=== PATIENT | male | born 1945 | race Caucasian/White ===

== ENCOUNTER 2023-03-07 09:44 | Inpatient (IN) | payer MEDICARE ==
[2023-03-07] MEDS ORDERED: Vancomycin 1 GM VIAL ONE (10:36)
[2023-03-07] MEDS ORDERED: Bupivacaine HCl 0.5%/Epinephrine 1:200,000/PF 30 ml Vial ONE (10:36)
[2023-03-07] MEDS ORDERED: Thrombin 5000 UNITS/5 ML VIAL ONE (10:36)
[2023-03-07 11:34] LABS: #Basophils 0.1 thou/uL (0.0-0.2); #Eosinphils 0.2 thou/uL (0.0-0.7); %Basophils 0.7 % (0.0-1.0); %Eosinophils 3.1 % (0.0-10.0); %Lymphocytes 22.5 % (21.0-51.0); %Monocytes 14.5 % (0.0-10.0); %Neutrophils 58.8 % (42.0-75.0); Hemoglobin 14.9 g/dL (14.0-18.0); Mean Corpuscular HGB CONC 35.6 g/dL (32.0-36.0); Mean Corpuscular Hemoglobin 34.3 pg (27.0-31.0); Mean Corpuscular Volume 96.3 fl (78.0-98.0); Mean Platelet Volume 10.9 fL (7.4-10.4); Platelet Count 181 10x3/uL (130-400); RBC Distribution Width 13.2 % (11.5-14.5); Red Blood Cell (RBC) Count 4.34 mill/uL (4.70-6.10); White Blood Cell (WBC) Count 6.8 10x3/uL (4.8-10.8)
[2023-03-07 11:39] LABS: PTT 27.2 sec (22.9-36.1); Prothrombin Time 13.6 sec (12.0-14.7)
[2023-03-07] MEDS ORDERED: Sodium Chloride 0.9% 100 ML ONE (11:54)
[2023-03-07] MEDS ORDERED: CEFAZOLIN 2 GM VIAL ONE (11:54)
[2023-03-07] MEDS ORDERED: Fentanyl 250 MCG/5 ML VIAL ONE (11:57)
[2023-03-07] MEDS ORDERED: PHENYLEPHRINE-NS 100 MCG/ML 10 ML SYRINGE ONE (12:17)
[2023-03-07] MEDS ORDERED: PROPOFOL 200 MG/20 ML VIAL ONE (12:17)
[2023-03-07] MEDS ORDERED: Ondansetron PF 4 MG/2 ML Vial ONE (12:17)
[2023-03-07] MEDS ORDERED: Lidocaine 1% PF 5 ML VIAL ONE (12:17)
[2023-03-07] MEDS ORDERED: Dexamethasone 20 MG/5 ML VIAL ONE (12:17)
[2023-03-07] MEDS ORDERED: Rocuronium Bromide 10 MG/ML (10ML VIAL) ONE (12:17)
[2023-03-07] MEDS ORDERED: Prochlorperazine 10 MG/2 ML VIAL IM PRN (12:26)
[2023-03-07] MEDS ORDERED: Morphine 2 MG/ML VIAL SLOW IVP PRN (12:26)
[2023-03-07] MEDS ORDERED: Mag-Al 1200 mg/1200 mg/30 ML UDCUP PO PRN (12:26)
[2023-03-07] MEDS ORDERED: Ondansetron PF 4 MG/2 ML Vial IVP PRN (12:26)
[2023-03-07] MEDS ORDERED: Bisacodyl 10 MG SUPP PR PRN (12:26)
[2023-03-07] MEDS ORDERED: Acetaminophen 325 MG TAB PO PRN (12:26)
[2023-03-07] MEDS ORDERED: SUGAMMADEX SODIUM 200 MG/2 ML VIAL ONE (14:50)
[2023-03-07] MEDS ORDERED: Rocuronium Bromide 50 MG/5 ML VIAL ONE (15:10)
[2023-03-07] MEDS ORDERED: Ondansetron HCl/PF 4 MG/2 ML Vial IVP PRN (17:48)
[2023-03-07] MEDS ORDERED: PACU-Morphine 4MG/ML VIAL SLOW IVP PRN (17:48)
[2023-03-07] MEDS ORDERED: Promethazine HCl 25 MG/ML VIAL IM PRN (17:48)
[2023-03-07] MEDS ORDERED: fentaNYL 50 mcg/mL 1 mL Vial ONE ×3 (18:08→18:50)
[2023-03-07] MEDS: HYDROcodone/Acetaminophen 10/325 mg Tablet PO PRN (20:18)
[2023-03-07] MEDS: CEFAZOLIN 2 GM in Sodium Chloride 0.9% 100 ML IVPB SCH (20:19)
[2023-03-07] MEDS: Sodium Chloride 0.9% 1,000 ML IV SCH (20:19)
[2023-03-07] MEDS ORDERED: cloNIDine 0.1 MG TAB PO SCH (21:00)
[2023-03-07] MEDS: cloNIDine 0.1 MG TAB PO SCH (21:02)
[2023-03-07] MEDS: Ezetimibe 10 MG TAB PO SCH (21:02)
[2023-03-08] MEDS: Acetaminophen/Codeine 30-300mg Tablet PO PRN (01:20)
[2023-03-08] MEDS: Sodium Chloride 0.9% 1,000 ML IV SCH ×2 (02:19→14:53)
[2023-03-08] MEDS: CEFAZOLIN 2 GM in Sodium Chloride 0.9% 100 ML IVPB SCH (03:31)
[2023-03-08] MEDS: HYDROcodone/Acetaminophen 7.5/325 mg Tablet PO PRN ×2 (03:32→20:54)
[2023-03-08] MEDS ORDERED: Tamsulosin HCl 0.4 MG CAP PO SCH (06:00)
[2023-03-08 07:35] LABS: #Monocytes 1.4 thou/uL (0.11-0.59); #Neutrophils 11.7 thou/uL (1.40-6.50); %Basophils 0.1 % (0.0-1.0); %Lymphocytes 6.4 % (21.0-51.0); Mean Corpuscular HGB CONC 35.2 g/dL (32.0-36.0); Mean Corpuscular Hemoglobin 34.2 pg (27.0-31.0); Mean Corpuscular Volume 97.1 fl (78.0-98.0); Mean Platelet Volume 11.1 fL (7.4-10.4); Platelet Count 152 10x3/uL (130-400); RBC Distribution Width 13.3 % (11.5-14.5); Red Blood Cell (RBC) Count 3.48 mill/uL (4.70-6.10); White Blood Cell (WBC) Count 14.1 10x3/uL (4.8-10.8)
[2023-03-08 07:38] LABS: Hemoglobin 11.9 g/dL (14.0-18.0)
[2023-03-08] MEDS: cloNIDine 0.1 MG TAB PO SCH ×2 (09:57→20:51)
[2023-03-08] MEDS: Terazosin HCl 5 MG CAP PO SCH (09:58)
[2023-03-08] MEDS: tiZANidine HCl 4 MG TAB PO PRN (11:51)
[2023-03-08] MEDS: HYDROcodone/Acetaminophen 10/325 mg Tablet PO PRN (14:07)
[2023-03-08] MEDS: Ezetimibe 10 MG TAB PO SCH (20:51)
[2023-03-09] MEDS: HYDROcodone/Acetaminophen 7.5/325 mg Tablet PO PRN (01:24)
[2023-03-09] MEDS: Sodium Chloride 0.9% 1,000 ML IV SCH (05:10)
[2023-03-09] MEDS: Acetaminophen/Codeine 30-300mg Tablet PO PRN ×3 (06:37→20:09)
[2023-03-09] MEDS: Terazosin HCl 5 MG CAP PO SCH (09:15)
[2023-03-09] MEDS: cloNIDine 0.1 MG TAB PO SCH ×2 (09:15→20:09)
[2023-03-09] MEDS: tiZANidine HCl 4 MG TAB PO PRN (12:11)
[2023-03-09 18:13] VITALS: BMI 37.0
[2023-03-09] MEDS: Ezetimibe 10 MG TAB PO SCH (20:09)
[2023-03-10] MEDS: Acetaminophen/Codeine 30-300mg Tablet PO PRN ×4 (03:52→21:06)
[2023-03-10] MEDS: Terazosin HCl 5 MG CAP PO SCH (10:28)
[2023-03-10] MEDS: cloNIDine 0.1 MG TAB PO SCH ×2 (10:28→21:05)
[2023-03-10 16:56] LABS: Anion Gap 15 mmol/L (10-20); BUN (Urea Nitrogen) 13 mg/dL (8.4-25.7); Calc. Creatinine Clearance 115 mL/min (70-130); Calcium 8.5 mg/dL (7.8-10.44); Carbon Dioxide 27 mmol/L (23-31); Chloride 97 mmol/L (98-107); Estimated GFR 78; Glucose 122 mg/dL (83-110); Sodium 136 mmol/L (136-145)
[2023-03-10] MEDS ORDERED: Potassium Chloride 20 MEQ TAB PO SCH ×3 (17:45→19:45)
[2023-03-10 19:33] LABS: Bacteria/HPF None Seen HPF (None Seen); Bilirubin 1+ (Negative); Blood, Urine Trace (Negative); Clarity Clear (Clear); Glucose, Urine (Dipstick) Normal (Negative); Ketone, Urine Trace mg/dL (Negative); Leukocyte Negative Leu/uL (Negative); Nitrite Negative (Negative); Protein, Urine (Dipstick) 30 mg/dL (Neg-Trace); RBC/HPF 0-3 HPF (0-3); Squamous Epithelial 0-3 HPF (0-3); Urobilinogen 3 mg/dL (Less than 2); WBC/HPF 0-3 HPF (0-3)
[2023-03-10] MEDS ORDERED: Apixaban 5 MG TAB PO SCH (21:00)
[2023-03-10] MEDS: Ezetimibe 10 MG TAB PO SCH (21:06)
[2023-03-11] MEDS: Acetaminophen/Codeine 30-300mg Tablet PO PRN ×3 (04:13→20:32)
[2023-03-11 06:34] LABS: Hemoglobin 10.7 g/dL (14.0-18.0); Mean Corpuscular HGB CONC 35.3 g/dL (32.0-36.0); Mean Corpuscular Hemoglobin 34.2 pg (27.0-31.0); Mean Corpuscular Volume 96.8 fl (78.0-98.0); Mean Platelet Volume 11.9 fL (7.4-10.4); Platelet Count 138 10x3/uL (130-400); RBC Distribution Width 13.1 % (11.5-14.5); Red Blood Cell (RBC) Count 3.13 mill/uL (4.70-6.10); White Blood Cell (WBC) Count 11.5 10x3/uL (4.8-10.8)
[2023-03-11 07:07] LABS: Anion Gap 15 mmol/L (10-20); BUN (Urea Nitrogen) 13 mg/dL (8.4-25.7); Calc. Creatinine Clearance 145 mL/min (70-130); Calcium 8.4 mg/dL (7.8-10.44); Carbon Dioxide 25 mmol/L (23-31); Chloride 97 mmol/L (98-107); Estimated GFR 93; Glucose 119 mg/dL (83-110); Potassium 3.1 mmol/L (3.5-5.1); Sodium 134 mmol/L (136-145)
[2023-03-11] MEDS ORDERED: Lactated Ringer's 1,000 ML IV SCH (07:15)
[2023-03-11 07:41] LABS: Anisocytosis SLIGHT = 6-15 cells HPF (0-5); Band 6 % (5-11); CellaVision Operator ID LAB.CLH1; Lymphocytes 4 % (21-51); Monocytes 8 % (0-10); Neutrophil 82 % (42-75); Platelet Adequacy Comment Platelets Normal; Polychromasia SLIGHT = 2-3 cells HPF (0-2); Total Cell Count 100
[2023-03-11] MEDS: cloNIDine 0.1 MG TAB PO SCH ×2 (08:57→20:32)
[2023-03-11] MEDS: Terazosin HCl 5 MG CAP PO SCH (08:58)
[2023-03-11] MEDS ORDERED: Furosemide 40 MG TAB PO SCH (09:00)
[2023-03-11] MEDS ORDERED: Lidocaine 1% (PF) 30 ML VIAL ONE (11:33)
[2023-03-11] MEDS ORDERED: Iopamidol 370 76% 100 ML VIAL ONE (11:43)
[2023-03-11] MEDS: Ezetimibe 10 MG TAB PO SCH (20:32)
[2023-03-12] MEDS: Acetaminophen/Codeine 30-300mg Tablet PO PRN ×2 (04:36→08:55)
[2023-03-12] MEDS: Terazosin HCl 5 MG CAP PO SCH (08:55)
[2023-03-12] MEDS: cloNIDine 0.1 MG TAB PO SCH ×2 (08:55→20:40)
[2023-03-12] MEDS: Milk Of Magnesia 30 ML UDCUP PO PRN (08:59)
[2023-03-12 09:53] LABS: #Eosinphils 0.2 thou/uL (0.0-0.7); #Monocytes 1.2 thou/uL (0.11-0.59); #Neutrophils 7.2 thou/uL (1.40-6.50); %Basophils 0.3 % (0.0-1.0); %Eosinophils 1.7 % (0.0-10.0); %Lymphocytes 10.1 % (21.0-51.0); %Monocytes 12.7 % (0.0-10.0); %Neutrophils 74.8 % (42.0-75.0); Hemoglobin 11.4 g/dL (14.0-18.0); Mean Corpuscular HGB CONC 33.8 g/dL (32.0-36.0); Mean Corpuscular Volume 100.6 fl (78.0-98.0); Mean Platelet Volume 11.1 fL (7.4-10.4); Platelet Count 202 10x3/uL (130-400); RBC Distribution Width 13.2 % (11.5-14.5); Red Blood Cell (RBC) Count 3.35 mill/uL (4.70-6.10); White Blood Cell (WBC) Count 9.6 10x3/uL (4.8-10.8)
[2023-03-12 10:16] LABS: Anion Gap 15 mmol/L (10-20); BUN (Urea Nitrogen) 15 mg/dL (8.4-25.7); Calc. Creatinine Clearance 143 mL/min (70-130); Calcium 8.7 mg/dL (7.8-10.44); Carbon Dioxide 27 mmol/L (23-31); Chloride 97 mmol/L (98-107); Estimated GFR 92; Glucose 123 mg/dL (83-110); Sodium 136 mmol/L (136-145)
[2023-03-12] MEDS: HYDROcodone/Acetaminophen 10/325 mg Tablet PO PRN ×2 (10:41→17:58)
[2023-03-12] MEDS: Ezetimibe 10 MG TAB PO SCH (20:40)
[2023-03-13] MEDS: HYDROcodone/Acetaminophen 10/325 mg Tablet PO PRN ×4 (04:55→20:13)
[2023-03-13 06:09] LABS: #Eosinphils 0.3 thou/uL (0.0-0.7); #Monocytes 1.2 thou/uL (0.11-0.59); #Neutrophils 6.9 thou/uL (1.40-6.50); %Basophils 0.3 % (0.0-1.0); %Eosinophils 2.7 % (0.0-10.0); %Lymphocytes 10.4 % (21.0-51.0); %Monocytes 13.1 % (0.0-10.0); %Neutrophils 72.8 % (42.0-75.0); Hemoglobin 10.7 g/dL (14.0-18.0); Mean Corpuscular HGB CONC 34.7 g/dL (32.0-36.0); Mean Corpuscular Hemoglobin 34.5 pg (27.0-31.0); Mean Corpuscular Volume 99.4 fl (78.0-98.0); Mean Platelet Volume 10.8 fL (7.4-10.4); Platelet Count 238 10x3/uL (130-400); RBC Distribution Width 13.2 % (11.5-14.5); White Blood Cell (WBC) Count 9.4 10x3/uL (4.8-10.8)
[2023-03-13 06:28] LABS: Anion Gap 13 mmol/L (10-20); BUN (Urea Nitrogen) 14 mg/dL (8.4-25.7); Calc. Creatinine Clearance 145 mL/min (70-130); Calcium 8.7 mg/dL (7.8-10.44); Carbon Dioxide 30 mmol/L (23-31); Chloride 97 mmol/L (98-107); Estimated GFR 93; Glucose 112 mg/dL (83-110); Iron 28 ug/dL (65-175); Iron Binding Capacity, Total 160 mcg/dL (261-462); Potassium 3.3 mmol/L (3.5-5.1); Sodium 137 mmol/L (136-145)
[2023-03-13 06:30] LABS: Iron 29 ug/dL (65-175); Iron Binding Capacity, Total 159 mcg/dL (261-462)
[2023-03-13] MEDS: cloNIDine 0.1 MG TAB PO SCH ×2 (09:18→20:13)
[2023-03-13] MEDS: Terazosin HCl 5 MG CAP PO SCH (09:18)
[2023-03-13] MEDS: Potassium Chloride 20 MEQ TAB PO SCH ×2 (12:11→13:58)
[2023-03-13] MEDS: Milk Of Magnesia 30 ML UDCUP PO PRN (13:58)
[2023-03-13 19:54] VITALS: BP 146/73; TEMP 99.6
[2023-03-13] MEDS: Ezetimibe 10 MG TAB PO SCH (20:13)
[2023-03-17] MEDS ORDERED: Apixaban 5 MG TAB PO SCH (21:00)
== END 2023-03-13 21:19 | disposition short-term general hospital (02) | DRG 519 ==
LOC: SDC 09:44 → SJJU 19:39 → OBSVTOIN 03-09 13:21
PROVIDERS: ADMIT Neurological Surgery; ATTEND Neurological Surgery
PROC: 01NB0ZZ Release Lumbar Nerve, Open Approach (ICD-10-PCS; principal; 2023-03-07)
PROC: 01NR0ZZ Release Sacral Nerve, Open Approach (ICD-10-PCS; 2023-03-07)
PROC: 00QT0ZZ Repair Spinal Meninges, Open Approach (ICD-10-PCS; 2023-03-07)
PROC: 06H03DZ Insertion of Intraluminal Device into Inferior Vena Cava, Percutaneous Approach (ICD-10-PCS; 2023-03-11)
DX: M48.062 Spinal stenosis, lumbar region with neurogenic claudication (principal); G97.0 Cerebrospinal fluid leak from spinal puncture; I82.431 Acute embolism and thrombosis of right popliteal vein; I82.441 Acute embolism and thrombosis of right tibial vein; E78.00 Pure hypercholesterolemia, unspecified; I10 Essential (primary) hypertension; M70.60 Trochanteric bursitis, unspecified hip; G89.29 Other chronic pain; N40.0 Benign prostatic hyperplasia without lower urinary tract symptoms; Z96.659 Presence of unspecified artificial knee joint; D50.9 Iron deficiency anemia, unspecified; M25.572 Pain in left ankle and joints of left foot; M25.571 Pain in right ankle and joints of right foot; Y84.4 Aspiration of fluid as the cause of abnormal reaction of the patient, or of later complication, without mention of misadventure at the time of the procedure; Z98.890 Other specified postprocedural states; Z91.81 History of falling; Z82.49 Family history of ischemic heart disease and other diseases of the circulatory system; Z79.899 Other long term (current) drug therapy
CPT/HCPCS: 36415; 37191; 71045; 80048; 81001; 82728; 83540; 83550; 85025; 85027; 85610; 85730; 93970; C1769; C1880; C1889; J1100; J2001; J2272; J2405; J2704; J3010; J3370; J3490; J7120; Q9967